=== PATIENT | female | born 1975 | race Caucasian/White ===

== ENCOUNTER 2023-10-14 21:27 | Emergency (ER) | payer BC, SELFPAY ==
[2023-10-14 21:32] VITALS: BP 189/112
[2023-10-14 21:49] LABS: % Basophils 0.5 % (0-2); % Eosinophils 0.7 % (0-6); % Immature Granulocytes 0.3 % (0-0.5); % Lymphocytes 12.5 % (20.5-51.1); % Monocytes 4.1 % (1.7-9.3); % Neutrophils 81.9 % (42.2-75.2); Absolute Basophils 0.1 10^3/uL (0-0.2); Absolute Eosinophils 0.1 10^3/uL (0-0.7); Absolute Lymphocytes 1.4 10^3/uL (1.2-3.4); Absolute Monocytes 0.5 10^3/uL (0.1-0.6); Absolute Neutrophils 8.9 10^3/uL (1.4-6.5); Hematocrit 39.7 % (37.0-47.0); Hemoglobin 14.2 g/dL (12.0-16.0); Mean Corp Hgb Conc. 35.8 g/dL (33.0-37.0); Mean Corpuscular Hgb 29.2 pg (27.0-31.0); Mean Corpuscular Volume 81.5 fL (81.0-99.0); Mean Platelet Volume 10.8 fL (7.4-10.4); Nucleated Red Blood Cells % 0 %; Platelet Count 325 10^3/uL (130-400); Red Blood Cell Count 4.87 10^6/uL (4.20-5.40); Red Cell Dist. Width 14.3 % (11.5-14.5); White Blood Cell Count 10.9 10^3/uL (4.8-10.8)
[2023-10-14 22:04] LABS: ALT (SGPT) 35 U/L (0-35); AST (SGOT) 28 U/L (14-36); Albumin 4.3 g/dl (3.5-5.0); Alkaline Phosphatase 94 U/L (38-126); Blood Urea Nitrogen 15 mg/dl (7-17); Calcium 9.4 mg/dl (8.4-10.2); Carbon Dioxide 26 mmol/L (22-30); Chloride 104 mmol/L (98-107); Glucose 132 mg/dl (70-99); Potassium 4.7 mmol/L (3.5-5.1); Sodium 136 mmol/L (135-145); Total Bilirubin 0.5 mg/dl (0.2-1.3); Total Protein 7.4 g/dl (6.3-8.2); eGFR > 60.00
--- NOTE | 2023-10-14 23:46 | ED.GENMED ---
History of Present Illness
<Cari Ponce PA-C - Last Filed: 10/18/23 08:04>
General
Chief Complaint: Headache
Source: patient
Exam Limitations: none
Time Seen by Provider: 10/14/23 22:48
Nursing documentation reviewed up to this point in time: agreed with
Travel History
Have you had any contact with someone who has COVID-19?: No
Do you have any symptoms of coronavirus? Fever > 100 degrees, chills, cough, shortness of breath, sore throat, loss of taste or smell, muscle aches, or headache?: No
History of Present Illness
History of Present Illness:
48-year-old female with a longstanding history of migraines since she was younger, has previously had neuroimaging and not been followed by neurologist in years presents for a typical migraine that started at 130 this afternoon when she was at home.
She says it came on at a moderate level and increased over an hour and is now 10 out of 10. Patient says that she has photophobia and phonophobia and nausea which are typical of her previous migraines. She is also had URI symptoms the last couple
days and went to urgent care just before this all started and was tested for flu and COVID which were negative. She took Motrin when the pain began hoping it would warted off and then took two 5 mg Flexeril tablets as well as a 5 mg Reglan tablet
later on but neither of these helped. Patient says she has been given Maxalt for breakthrough and Topamax for chronic preventative migraine therapy but she stopped it a few mon ago becuase it hasn't helped
she hasn't thought to be seen by neuro
no new symptoms, no paresthesias, weakness, cp, sob, vision changes.
Past History
<Cari Ponce PA-C - Last Filed: 10/18/23 08:04>
Past History
ED Past Medical History: Asthma, Fibromyalgia, GERD, Other (Celiac disease,) and Other (SVT)
ED Past Surgical History: Other (Cardiac ablation for WPW,: Sinus surgery, ear tubes)
Social History
Tobacco: Non-smoker
Alcohol: Occasional
Drug: None
Personal: Single
Living: with family
Employment: Employed
Family History
Family History: Other (NA)
Review of Systems
<Cari Ponce PA-C - Last Filed: 10/18/23 08:04>
Review of Systems
Allergies reviewed?: Yes
All Other Systems: Not applicable
Phy Exam
<Cari Ponce PA-C - Last Filed: 10/18/23 08:04>
Physical Exam
Physical Exam:
GENERAL: Alert , in a dark room, towel over her head; otherwise no distress
HEAD: NCAT
EYE: pupils equal and reactive, no nystagmus, moderate photophobia
NECK: Supple,full rom, nontender
ENT: o/p clr, mmm.
CARDIAC: Regular rate and rhythm . no edema
LUNGS: Clear breath sounds bilaterally, no acute respiratory distress, no wheezes/rales/rhonchi
ABDOMEN: Soft, without focal tenderness, no r/g, no cvat
NEUROLOGICAL: Alert and orientedx 4, cn intact, no facial asymmetry, 5/5 strength in UE/LE, sensation intact, romberg neg, ambulates without assistance, neg pronator drift
SKIN: Warm and dry, skin intact.
MUSCULOSKELETAL: No edema, well perfused.
PSYCH: Normal and appropriate interaction.
Course
<Cari Ponce PA-C - Last Filed: 10/18/23 08:04>
Orders/Labs/Results
Orders:
Orders
10/14/23 21:39
CMP [Comprehensive Metabolic Panel] Urgent
Complete Blood Count/With Diff Urgent
10/14/23 23:29
Electrocardiogram (*1) Urgent
Reason for Study: TIA/Stroke
EKG- Treatment ONCE
0.9% Sodium Chloride 1000 ml [Nss] 1,000 ml IV BOLUS
Diphenhydramine [Benadryl] 25 mg IV NOW STA
Ketorolac [Toradol] 30 mg IV NOW STA
Metoclopramide [Reglan] 10 mg IV NOW STA
Abnormal Lab Results
10/14/23
21:39
WBC 10.9 H 10^3/uL
(4.8-10.8)
MPV 10.8 H fL
(7.4-10.4)
Absolute Neuts (auto) 8.9 H 10^3/uL
(1.4-6.5)
Neutrophils % 81.9 H %
(42.2-75.2)
Lymphocytes % 12.5 L %
(20.5-51.1)
Glucose 132 H mg/dl
(70-99)
10/14/23 21:39
10/14/23 21:39
Vital Signs
Blood pressure: 149/95
Initial and Last Documented VS:
Initial Vital Signs
Temp Pulse Resp BP Pulse Ox
98.1 F 88 19 189/112 99
10/14/23 21:32 10/14/23 21:32 10/14/23 21:32 10/14/23 21:32 10/14/23 21:32
Last Documented Vital Signs
Temp Pulse Resp BP Pulse Ox
98.1 F 88 19 149/95 99
10/14/23 21:32 10/14/23 21:32 10/14/23 21:32 10/14/23 23:59 10/14/23 21:32
<Sarah Maher NP - Last Filed: 10/15/23 01:54>
Orders/Labs/Results
Orders:
Orders
10/14/23 21:39
CMP [Comprehensive Metabolic Panel] Urgent
Complete Blood Count/With Diff Urgent
10/14/23 23:29
Electrocardiogram (*1) Urgent
Reason for Study: TIA/Stroke
EKG- Treatment ONCE
0.9% Sodium Chloride 1000 ml [Nss] 1,000 ml IV BOLUS
Diphenhydramine [Benadryl] 25 mg IV NOW STA
Ketorolac [Toradol] 30 mg IV NOW STA
Metoclopramide [Reglan] 10 mg IV NOW STA
Abnormal Lab Results
10/14/23
21:39
WBC 10.9 H 10^3/uL
(4.8-10.8)
MPV 10.8 H fL
(7.4-10.4)
Absolute Neuts (auto) 8.9 H 10^3/uL
(1.4-6.5)
Neutrophils % 81.9 H %
(42.2-75.2)
Lymphocytes % 12.5 L %
(20.5-51.1)
Glucose 132 H mg/dl
(70-99)
10/14/23 21:39
10/14/23 21:39
Vital Signs
Initial and Last Documented VS:
Initial Vital Signs
Temp Pulse Resp BP Pulse Ox
98.1 F 88 19 189/112 99
10/14/23 21:32 10/14/23 21:32 10/14/23 21:32 10/14/23 21:32 10/14/23 21:32
Last Documented Vital Signs
Temp Pulse Resp BP Pulse Ox
98.1 F 88 19 149/95 99
10/14/23 21:32 10/14/23 21:32 10/14/23 21:32 10/14/23 23:59 10/14/23 21:32
<Cari Ponce PA-C - Last Filed: 10/18/23 08:04>
MDM/Problems Addressed
Differential Diagnosis Includes:
migraine, tension headache
MDM/Problems Addressed:
48 y/o F w h/o migraines
has current URI
neg flu and covid today
started with typical migrain 130 pm, back of neck up to head, feels like stabbing
nausea, no vomiting
+ photo/phonophobia
no other symptoms
has these once a month
meds at home not helping
hasn't seen neuro in some time, unclear why not
on exam pt is wearing towel on her head in a dark room
photophobia
otheriwse neuro intact
bp better
typical for her migrianes
she says she someti,es gets dilaudid
do not see this on our previous ed visits
disucssed that we tend to avoid opiates for migraines
ekg qtc normal
reglan, toradol, benadryl
signed out to sarah at 0030
<Sarah Maher NP - Last Filed: 10/15/23 01:54>
*Critical Care Note
Total Time (30-74mins, 75-104mins- exclusive of procedures): Not Applicable
<Sarah Maher NP - Last Filed: 10/15/23 01:54>
Update Note
Update Note:
Improved with IVF, migraine cocktail. SHe is discharged home and is agreeable to plan.
ED Attending Note
<Cari Ponce PA-C - Last Filed: 10/18/23 08:04>
-
Portions of this chart may have been created with voice recognition software.� Occasional wrong word or��sound alike� substitutions may have occurred due to the inherent limitations of voice recognition software.
Discharge Plan
Departure
Patient Disposition: Home (Routine Discharge)
Date of Disposition: 10/15/23
Time of Disposition: 01:52
Patient with high blood pressure during this ER visit?: No
Condition: Good
Covid-19: Not Applicable
Discharge Problem:
Migraine
Instructions: Migraines (DC)
Prescriptions:
No Action
cetirizine 10 MG tablet
10 mg PO BID
famotidine [Acid Controller] 20 MG tablet
20 mg PO BID
cannabidiol [Epidiolex] 1 UNIT solution
1 unit PO HS PRN (Reason: anxiety)
dupilumab [Dupixent Pen] 300 MG/2 ML pen injector
300 mg SQ .Q2WK
Allqlear
1 tab PO DAILY
Nrf2 Detoxification
1 cap PO DAILY
Keymar 3 Soft Gel
1 gel PO DAILY
Proflora 4 R
1 cap PO DAILY
Same
1 cap PO DAILY
Synergy K
1 cap PO DAILY
Th 1 Support
1 cap PO DAILY
Vitamin B12 - Folate
1 cap PO DAILY
Vitamin D3:
5,000 int.units PO DAILY
Referrals:
Racheal Mahoney MD [Family Provider] - Tomorrow
Interventions
Interventions:
*Risk Screen - Suicide Last Done: 10/14/23 21:34
*General Assessment Last Done: 10/14/23 21:34
*Neglect/Abuse Screening Last Done: 10/14/23 21:34
*ED COVID-19 Vaccine History Last Done: 10/14/23 21:33
*Nursing Disposition Last Done: 10/15/23 02:04
ED- Neurological Assessment Last Done: 10/15/23 00:40
Discharge Date and Time
Discharge Date/Time: 10/15/23 02:04
[2023-10-15] MEDS: TORADOL 30 MG IV (00:13)
[2023-10-15] MEDS: NSS 1000 IV (00:13)
[2023-10-15] MEDS: REGLAN 10 MG IV (00:14)
[2023-10-15] MEDS: BENADRYL 25 MG IV (00:14)
== END 2023-10-15 02:04 | disposition home or self-care (01) ==
LOC: EMR 21:27
PROVIDERS: Student in an Organized Health Care Education/Training Program; EMERGENCY PHYSICIAN Emergency Medicine; FAMILY PHYSICIAN Family Medicine
DX: G43.909 Migraine, unspecified, not intractable, without status migrainosus (principal); R11.0 Nausea; M79.7 Fibromyalgia; J45.909 Unspecified asthma, uncomplicated; K21.9 Gastro-esophageal reflux disease without esophagitis; K90.0 Celiac disease; F43.10 Post-traumatic stress disorder, unspecified; E06.3 Autoimmune thyroiditis; E72.12 Methylenetetrahydrofolate reductase deficiency; I47.10 Supraventricular tachycardia, unspecified; Z91.040 Latex allergy status; Z88.5 Allergy status to narcotic agent; Z91.018 Allergy to other foods; Z88.0 Allergy status to penicillin; Z88.2 Allergy status to sulfonamides; Z88.8 Allergy status to other drugs, medicaments and biological substances
CPT/HCPCS: 99284; 96374; 96375 ×2; 96361; 80053; 85025; 93005

== ENCOUNTER → 2024-01-26 12:37 | Outpatient (REF) | payer BC, SELFPAY | LOC: MRI 3T 12:37 | PROVIDERS: ATTENDING PHYSICIAN Psychiatry & Neurology Neurology; FAMILY PHYSICIAN Family Medicine | DX: G43.111 Migraine with aura, intractable, with status migrainosus (principal); M54.2 Cervicalgia | CPT/HCPCS: 70553; 72050; A9575 ==

== ENCOUNTER → 2024-04-16 06:23 | Day surgery (SDC) | payer BC, SELFPAY | LOC: GI 06:23 | PROVIDERS: ATTENDING PHYSICIAN Internal Medicine | DX: Z12.11 Encounter for screening for malignant neoplasm of colon (principal); K63.5 Polyp of colon | CPT/HCPCS: 45380; 88305; 88341; 88342 ==

== ENCOUNTER → 2024-11-14 10:45 | Outpatient (REF) | payer BC, SELFPAY | LOC: RCS 10:45 | PROVIDERS: ATTENDING PHYSICIAN Internal Medicine Cardiovascular Disease; FAMILY PHYSICIAN Family Medicine | DX: R06.09 Other forms of dyspnea (principal) | CPT/HCPCS: 93017 ==